=== PATIENT | female | born 1960 | race African-American/Black ===

== ENCOUNTER 2022-09-06 13:03 | Outpatient (CLI) | payer MEDICARE ==
[2022-09-06 14:07] LABS: Bilirubin Neg (Negative); Blood, Urine Negative (Negative); Clarity Clear (Clear); Glucose, Urine (Dipstick) Normal (Negative); Ketone, Urine Negative (Negative); Leukocyte Negative (Negative); Nitrite Negative (Negative); Protein, Urine (Dipstick) Negative (Neg-Trace); Urobilinogen Normal mg/dL (Less than 2)
== END 2022-09-06 13:04 | disposition home or self-care (01) ==
LOC: LABBT 13:03
PROVIDERS: ATTEND Orthopaedic Surgery
DX: Z01.818 Encounter for other preprocedural examination (principal); M17.11 Unilateral primary osteoarthritis, right knee
CPT/HCPCS: 71046; 81003; 93005; 93010

== ENCOUNTER 2022-09-10 05:28 | Inpatient (IN) | payer OTHER, MEDICARE ==
[2022-09-06 14:13] LABS: Hemoglobin 11.6 g/dL (12.0-15.5); Mean Corpuscular HGB CONC 30.8 g/dL (32.0-36.0); Mean Corpuscular Hemoglobin 25.9 pg (27.0-33.0); Mean Corpuscular Volume 84.2 fl (81.6-98.3); Platelet Count 293 10x3/uL (150-450); RBC Distribution Width 15.1 % (11.5-14.5); Red Blood Cell (RBC) Count 4.48 10x6/uL (3.90-5.03)
[2022-09-06 14:25] LABS: INR-International Normal Ratio 0.9
[2022-09-06 14:26] LABS: MDiff Complete? YES; Manual Diff?? YES
[2022-09-06 14:34] LABS: Eosinophils 6 % (0-10); Lymphocytes 31 % (21-51); Monocytes 10 % (0-10); Neutrophil 45 % (42-75); Reactive Lymphocytes 8 % (0-10)
[2022-09-06 14:37] LABS: Platelet Morphology Comment Appears Adequate; RBC Morphology Normal
[2022-09-06 15:25] LABS: Anion Gap 15 mmol/L (10-20); BUN (Urea Nitrogen) 9 mg/dL (9.8-20.1); Calc. Creatinine Clearance 0 mL/min (70-130); Calcium 9.1 mg/dL (7.8-10.44); Carbon Dioxide 22 mmol/L (23-31); Chloride 109 mmol/L (98-107); Estimated GFR 64; Glucose 98 mg/dL (80-115); Potassium 4.2 mmol/L (3.5-5.1); Sodium 142 mmol/L (136-145)
[2022-09-10] MEDS ORDERED: Fentanyl 250 MCG/5 ML VIAL ONE (06:17)
[2022-09-10] MEDS ORDERED: Vancomycin (BATCH) 1.5 GRAM/300 ML BAG ONE (06:19)
[2022-09-10] MEDS ORDERED: Sodium Chloride 0.9% 100 ML ONE ×2 (06:19→06:54)
[2022-09-10] MEDS ORDERED: Tranexamic Acid 1,000 MG/10 ML VIAL ONE (06:19)
[2022-09-10] MEDS ORDERED: Bupivacaine PF 0.5% 30 ML VIAL ONE ×2 (06:28→08:00)
[2022-09-10] MEDS ORDERED: Midazolam HCl 2 mg/2 ml Vial ONE (06:34)
[2022-09-10] MEDS ORDERED: FENTANYL 50 MCG/ML 1 ML VIAL ONE ×3 (06:34→09:39)
[2022-09-10] MEDS ORDERED: CEFAZOLIN 2 GM VIAL ONE (06:54)
[2022-09-10 07:01] LABS: SARS-CoV-2 NAA Rapid Test Not Detected (NotDetected)
[2022-09-10] MEDS ORDERED: SUGAMMADEX SODIUM 200 MG/2 ML VIAL ONE (07:06)
[2022-09-10] MEDS ORDERED: Rocuronium Bromide 10 MG/ML (10ML VIAL) ONE (07:19)
[2022-09-10] MEDS ORDERED: Dexamethasone 20 MG/5 ML VIAL ONE (07:19)
[2022-09-10] MEDS ORDERED: Succinylcholine Chloride 100 MG/5 ML SYRINGE FS ONE (07:19)
[2022-09-10] MEDS ORDERED: PROPOFOL 200 MG/20 ML VIAL ONE (07:19)
[2022-09-10] MEDS ORDERED: Lidocaine 1% PF 5 ML VIAL ONE (07:19)
[2022-09-10] MEDS ORDERED: Bupivacaine HCl 0.5%/Epinephrine 1:200,000/PF 30 ml Vial ONE (07:19)
[2022-09-10] MEDS ORDERED: Ondansetron PF 4 MG/2 ML Vial ONE (07:19)
[2022-09-10] MEDS ORDERED: Phenylephrine 10 MG/ML VIAL ONE (07:19)
[2022-09-10] MEDS ORDERED: FENTANYL 50 MCG/ML 1 ML VIAL SLOW IVP PRN (07:24)
[2022-09-10] MEDS ORDERED: Promethazine HCl 25 MG/ML VIAL IM PRN ×2 (07:30→07:38)
[2022-09-10] MEDS ORDERED: Ropivacaine 0.2% 550 ML 550 ML NERVE BLCK SCH (07:30)
[2022-09-10] MEDS ORDERED: HYDROcodone/Acetaminophen 10/325 mg Tablet PO PRN ×2 (07:30)
[2022-09-10] MEDS ORDERED: Zolpidem Tartrate 5 MG TAB PO PRN ×2 (07:30→07:38)
[2022-09-10] MEDS ORDERED: Ondansetron PF 4 MG/2 ML Vial IVP PRN ×2 (07:30→07:38)
[2022-09-10] MEDS ORDERED: diphenhydrAMINE 25 MG CAP PO PRN (07:38)
[2022-09-10] MEDS ORDERED: Acetaminophen 325 MG TAB PO PRN (07:38)
[2022-09-10] MEDS ORDERED: traMADol HCl 50 MG TAB PO PRN (07:38)
[2022-09-10] MEDS ORDERED: Albuterol 200 PUFF (6.7GM INHALER) INH PRN (07:40)
[2022-09-10] MEDS ORDERED: Vancomycin HCl 1.5 GM in Sodium Chloride 0.9% 250 ML 300 ML IVPB SCH (07:45)
[2022-09-10] MEDS ORDERED: Tranexamic Acid 1,000 MG in Sodium Chloride 0.9% 100 ML IVPB SCH (07:45)
[2022-09-10] MEDS ORDERED: HYDROmorphone 2 MG/ML VIAL ONE (07:49)
[2022-09-10] MEDS: Sodium Chloride 0.9% 1,000 ML IV SCH ×3 (11:49→17:53)
[2022-09-10] MEDS: Lisinopril 20 MG TAB PO SCH (11:51)
[2022-09-10] MEDS: Aspirin 81 mg Enteric Coated Tablet PO SCH ×2 (11:52→20:26)
[2022-09-10] MEDS: Multivitamin W/ Minerals 1 TAB PO SCH (11:53)
[2022-09-10] MEDS: Ferrous Gluconate 324 MG TAB PO SCH ×2 (11:53→20:26)
[2022-09-10] MEDS: Fluticasone Propionate Nasal Spray 16 gm Bottle NASAL SCH (11:53)
[2022-09-10] MEDS: Senokot S 8.6-50 MG TAB PO SCH ×2 (11:54→20:26)
[2022-09-10] MEDS ORDERED: Ketorolac Tromethamine 30 MG/ML VIAL IVP SCH (12:00)
[2022-09-10 13:14] VITALS: BMI 31.6
[2022-09-10] MEDS: CEFAZOLIN 2 GM in Sodium Chloride 0.9% 100 ML IVPB SCH ×2 (15:25→23:06)
[2022-09-10] MEDS ORDERED: Acetaminophen/Codeine 30-300mg Tablet PO PRN (16:05)
[2022-09-10] MEDS ORDERED: Vancomycin 1.5 GRAM/300 ML BAG 1.5 GM in Premix Bag 1 BAG IVPB SCH (18:00)
[2022-09-10] MEDS: Rosuvastatin 20 MG TAB PO SCH (20:26)
[2022-09-10] MEDS: Acetaminophen/Codeine 30-300mg Tablet PO PRN (23:06)
[2022-09-11] MEDS: Sodium Chloride 0.9% 1,000 ML IV SCH ×3 (04:33→19:29)
[2022-09-11 06:34] LABS: Hemoglobin 10.1 g/dL (12.0-16.0); Mean Corpuscular HGB CONC 31.6 g/dL (32.0-36.0); Mean Corpuscular Hemoglobin 27.2 pg (27.0-31.0); Mean Platelet Volume 8.1 fL (7.4-10.4); Platelet Count 262 10x3/uL (130-400); RBC Distribution Width 14.3 % (11.5-14.5); Red Blood Cell (RBC) Count 3.73 mill/uL (4.20-5.40); White Blood Cell (WBC) Count 10.2 10x3/uL (4.8-10.8)
[2022-09-11] MEDS: Acetaminophen/Codeine 30-300mg Tablet PO PRN ×3 (08:11→19:51)
[2022-09-11] MEDS: Aspirin 81 mg Enteric Coated Tablet PO SCH ×2 (08:15→19:52)
[2022-09-11] MEDS: Ferrous Gluconate 324 MG TAB PO SCH ×2 (08:15→19:52)
[2022-09-11] MEDS: Multivitamin W/ Minerals 1 TAB PO SCH (08:15)
[2022-09-11] MEDS: Senokot S 8.6-50 MG TAB PO SCH ×2 (08:15→19:37)
[2022-09-11] MEDS: Lisinopril 20 MG TAB PO SCH (08:16)
[2022-09-11] MEDS: Fluticasone Propionate Nasal Spray 16 gm Bottle NASAL SCH (11:04)
[2022-09-11] MEDS: Rosuvastatin 20 MG TAB PO SCH (19:52)
[2022-09-12] MEDS: Acetaminophen/Codeine 30-300mg Tablet PO PRN ×3 (03:23→15:16)
[2022-09-12 06:12] LABS: Hemoglobin 10.2 g/dL (12.0-16.0); Mean Corpuscular Hemoglobin 28.1 pg (27.0-31.0); Mean Corpuscular Volume 85.1 fl (78.0-98.0); Platelet Count 219 10x3/uL (130-400); RBC Distribution Width 14.4 % (11.5-14.5); Red Blood Cell (RBC) Count 3.62 mill/uL (4.20-5.40); White Blood Cell (WBC) Count 10.1 10x3/uL (4.8-10.8)
[2022-09-12] MEDS: Multivitamin W/ Minerals 1 TAB PO SCH (08:21)
[2022-09-12] MEDS: Aspirin 81 mg Enteric Coated Tablet PO SCH (08:21)
[2022-09-12] MEDS: Senokot S 8.6-50 MG TAB PO SCH ×2 (08:21→08:24)
[2022-09-12] MEDS: Lisinopril 20 MG TAB PO SCH (08:21)
[2022-09-12] MEDS: Ferrous Gluconate 324 MG TAB PO SCH (08:21)
[2022-09-12] MEDS: Fluticasone Propionate Nasal Spray 16 gm Bottle NASAL SCH (08:22)
[2022-09-12] MEDS: Sodium Chloride 0.9% 1,000 ML IV SCH ×2 (08:24→11:35)
[2022-09-12 16:47] VITALS: BP 132/71; TEMP 99.4
== END 2022-09-12 17:56 | disposition home or self-care (01) | DRG 470 ==
LOC: SDC 05:28 → SURG B 11:05 → EDSTATUS 13:15 → OBSVTOIN 09-11 14:21
PROVIDERS: ADMIT Orthopaedic Surgery; ATTEND Orthopaedic Surgery
PROC: 0SRC0J9 Replacement of Right Knee Joint with Synthetic Substitute, Cemented, Open Approach (ICD-10-PCS; principal; 2022-09-10)
DX: M17.11 Unilateral primary osteoarthritis, right knee (principal); Z20.822 Contact with and (suspected) exposure to COVID-19; E78.5 Hyperlipidemia, unspecified; J45.909 Unspecified asthma, uncomplicated; Z88.8 Allergy status to other drugs, medicaments and biological substances; Z98.890 Other specified postprocedural states; Z90.5 Acquired absence of kidney; Z88.6 Allergy status to analgesic agent; Z87.891 Personal history of nicotine dependence; Z79.51 Long term (current) use of inhaled steroids; Z79.899 Other long term (current) drug therapy; Z79.52 Long term (current) use of systemic steroids
CPT/HCPCS: 36415; 80048; 85025; 85027; 85610; 86850; 86900; 86901; 87081; 96365; 96366; 96367; 96375; 96376; A4306; C1713; C1776; G0378; J1100; J1170; J1885; J2250; J2370; J2405; J2704; J2795; J3010; J3370; J3490; J7050; S0020; U0002